=== PATIENT | female | born 1945 | race Caucasian/White ===

== ENCOUNTER 2024-06-11 09:57 | Day surgery (SDC) | payer MEDICARE, BC, SELFPAY ==
[2024-06-07 10:10] VITALS: BMI 32.2
[2024-06-08 13:41] LABS: Basophils # (Auto) 0.1 Thou/mm3 (0.0-0.2); Basophils % (Auto) 1 % (0-2.5); Eosinophils # (Auto) 0.4 Thou/mm3 (0.0-0.5); Eosinophils % (Auto) 5 % (0-10); Hematocrit 37.6 % (36.0-46.0); Hemoglobin 12.2 g/dL (12.0-16.0); Immature Granulocytes % (Auto) 0 % (0-0); Immature Granulocytes Auto 0.02 Thou/mm3 (0.00-0.00); Lymphocytes # (Auto) 2.2 Thou/mm3 (1.0-4.8); Lymphocytes % (Auto) 27 % (10-50); Mean Corpuscular HGB Conc 32.4 g/dl (31.0-37.0); Mean Corpuscular Hemoglobin 30.7 pg (25.0-35.0); Mean Corpuscular Volume 95 fL (80-100); Monocytes # (Auto) 0.6 Thou/mm3 (0.0-0.8); Monocytes % (Auto) 7 % (0-12); Neutrophils # (Auto) 4.9 Thou/mm3 (1.8-7.7); Neutrophils % (Auto) 59 % (37-80); Nucleated Red Blood Cell % 0 /100 WBC (0); Platelet Count 377 Thou/mm3 (140-440); RDW Standard Deviation 46.5 fL (36.4-46.3); Red Blood Count 3.98 Miln/mm3 (4.00-5.20); White Blood Count 8.2 Thou/mm3 (3.6-11.0)
[2024-06-08 13:48] LABS: Anion Gap 6 (7-16); BUN/Creatinine Ratio 18 Ratio (12-20); Blood Urea Nitrogen 16 mg/dL (9-23); Calcium 9.7 mg/dL (8.3-10.6); Carbon Dioxide 29.4 mMol/L (20.0-31.0); Chloride 108 mMol/L (98-107); Creatinine (Component) 0.9 mg/dL (0.6-1.3); Estimated Creatinine Clearance 54.4 mL/min (>60); Glucose 94 mg/dL (74-106); Osmolality,Calculated 286 (275-295); Potassium 4.7 mMol/L (3.4-5.1); Prothrombin Time 10.9 Seconds (9.0-12.2); Sodium 143 mMol/L (136-145); eGFR > 60 See Note
[2024-06-11] VITALS (12 sets, daily range): BP systolic 146–196; BP diastolic 66–106; PULSE 62–75; RESP 15–17; TEMP 36.7; O2SAT 95–98
[2024-06-11] MEDS: hydrALAZINE INJ 20 MG/ML VIAL 10 MG IV (12:52)
[2024-06-11] MEDS: VALSARTAN 80 MG TABLET 160 MG PO (13:47)
--- NOTE | 2024-06-11 14:26 | ESOP_ITS ---
RE: TERRI REED : 1945 DATE OF OPERATION: 06/11/2024 PROCEDURE PERFORMED: 1. Diagnostic left heart cardiac catheterization, selective coronary angiogram, and left ventricular angiogram, CPT 96701. 2. Conscious sedation, 30 minutes duration. 3. Ultrasound-guided access, right radial artery. DIAGNOSES: Abnormal stress test, angina pectoris, and hypertension. HISTORY AND INDICATIONS: The patient is a 79-year-old female with a history of mild hypertension who has been having recurrent shortness of breath with chest tightness, atypical chest pain. Cardiac stress test and nuclear scan was abnormal hence coronary angiogram was recommended to assess the patient is the candidate for coronary intervention and revascularization. DESCRIPTION OF PROCEDURE: The patient was brought to cardiac catheterization laboratory. She was given 2 mg of Versed and 100 mcg fentanyl for sedation. Right radial approach was taken. Right radial artery was cannulated by micropuncture technique and 6-Kinyarwanda Glidesheath was introduced. Selective right and left coronary angiogram performed by TIG-4 diagnostic catheter. Left heart catheterization and left ventricular angiogram performed by TIG-4 diagnostic catheter. The patient tolerated the procedure well. No complications. TR band was applied. Hemostasis was secured. Radial cocktail was given after the cannulation. Cardiac catheterization showed following findings. Hemodynamics: Left ventricular pressure 150/10, EDP 12, aortic pressure 150/80. No gradient across the aortic valve. Left ventricular angiogram showed normal left ventricular wall motion. Ejection fraction 70%. Coronary angiogram showed following findings. The right coronary artery is large and dominant, giving off PDA and PL branch, appeared normal. Left coronary system: Left main coronary artery is normal. Left anterior descending artery appears normal. Left circumflex artery is normal. SUMMARY OF FINDINGS: 1. Normal nonobstructive epicardial coronary arteries. 2. Normal left ventricular function, EF 70%. 3. Mild hypertension. RECOMMENDATIONS: Continue medical management. Monitor blood pressure closely. No need for aspirin since he has perfectly normal coronary arteries. DT: 12:53:40 TT: 14:25:00 Ref: [id number] - TID: [id number]
== END 2024-06-11 15:51 | disposition home or self-care (01) ==
PROVIDERS: PCP Family Medicine; Referring Provider Internal Medicine Cardiovascular Disease; Visit Provider Internal Medicine Cardiovascular Disease
PROC: (CPT 93458; principal; 2024-06-11 11:30)
DX: I25.118 Atherosclerotic heart disease of native coronary artery with other forms of angina pectoris (principal); I34.1 Nonrheumatic mitral (valve) prolapse; I10 Essential (primary) hypertension; I44.7 Left bundle-branch block, unspecified
CPT/HCPCS: 93458; 36415; 80048; 85025; 85610; 85730; 99152; 99153; A4649; C1887; C1894; J0171; J0360; J0461; J1643; J2250; J2310; J2371; J3010; J3490; Q9967; A9270